=== PATIENT | female | born 1965 | race American Indian/Alaskan Native ===

== ENCOUNTER 2017-07-19 14:43 | Emergency (ER) | payer MEDICARE ==
[2017-07-19 14:51] VITALS: BP 100/82
--- NOTE | 2017-07-19 16:00 | Emergency Department Report ---
Chief Complaint: Skin Rash Stated Complaint: VAGINAL RASH Time Seen by Provider: 07/19/17 15:45 - HPI History of Present Illness: Patient is a 52-year-old Deirdre female who states that several days ago she used KY jelly and 24-36 hours later began having burning and irritation in the vulva. Patient states she has dysuria as well. Patient states that she thinks she is having allergic reaction. This reaction did not occur until a day plus after using the KY jelly. Patient denies discharge. Patient has tried using Neosporin on the area with no relief. Patient denies nausea vomiting diarrhea at this time. - ROS Review of Systems: Review of systems is negative except for those elements in HPI - Exam Vital Signs: Vital Signs 07/19/17 14:46 Temperature 98.4 F Pulse Rate 71 Respiratory 18 Rate Blood Pressure 100/82 O2 Sat by Pulse 100 Oximetry Physical Exam: Focused physical exam with senior production planner I did look at the patient's vulva she had copious amounts of the vagina however I did not see any local rash consistent with a allergic reaction or fungal infection patient did not appear to have vaginal discharge over the cream she has on is white and could mask of the exam. MSE screening note: Focused history and physical exam performed. Due to findings the following was ordered: ED Disposition for MSE Clinical Impression: Bacterial vaginosis Disposition: DC-01 TO HOME OR SELFCARE Is pt being admited?: No Does the pt Need Aspirin: No Condition: Fair Instructions: Bacterial Vaginosis (ED) Prescriptions: diphenhydrAMINE [Benadryl CAP] 25 mg PO Q8HR PRN #15 capsule PRN Reason: Itching metroNIDAZOLE [Flagyl] 500 mg PO Q12HR 7 Days tab traMADol [Ultram] 50 mg PO Q6HR PRN #12 tablet PRN Reason: Pain Referrals: JULIA SANCHES MD [Primary Care Provider] - 3-5 Days Forms: STI Treatment and Prevention
== END 2017-07-19 16:18 | disposition home or self-care (01) ==
LOC: ED 14:43
DX: N76.0 Acute vaginitis (principal); B96.89 Other specified bacterial agents as the cause of diseases classified elsewhere; Z91.09 Other allergy status, other than to drugs and biological substances
CPT/HCPCS: 82962; 99282

== ENCOUNTER 2017-08-09 01:24 | Emergency (ER) | payer MEDICARE ==
[2017-08-09 01:32] VITALS: BP 118/56
== END 2017-08-09 04:10 | disposition left against medical advice (07) ==
LOC: ED 01:24
DX: J00 Acute nasopharyngitis [common cold] (principal); Z53.21 Procedure and treatment not carried out due to patient leaving prior to being seen by health care provider
CPT/HCPCS: 87116; 87430

== ENCOUNTER 2018-10-06 10:18 | Outpatient (CLI) | payer MEDICARE ==
--- NOTE | 2018-10-06 12:00 | XRay Report ---
LEFT HIP, 2 views: History: Pain. The bony architecture is intact without evidence of fracture or dislocation. No significant soft tissue abnormality is seen. IMPRESSION: Normal left hip.
--- NOTE | 2018-10-06 13:45 | XRay Report ---
LUMBOSACRAL SPINE, FIVE VIEWS: HISTORY: Pain. Normal bone mineralization. Mild degenerative disc disease is identified throughout the lumbar spine. Moderate to severe facet arthropathy is identified as well. There is no evidence for compression deformity, subluxation or bone lesion. The sacrum and SI joints are unremarkable. The oblique images are suboptimal and poorly demonstrated the neural foramen. IMPRESSION: Mild to moderate multilevel lumbar spondylosis.
== END 2018-10-06 10:19 | disposition home or self-care (01) ==
LOC: XRAY 10:18
PROVIDERS: ATTEND Orthopaedic Surgery
DX: M47.816 Spondylosis without myelopathy or radiculopathy, lumbar region (principal); M25.552 Pain in left hip; I10 Essential (primary) hypertension; Z90.49 Acquired absence of other specified parts of digestive tract
CPT/HCPCS: 72110